=== PATIENT | female | born 1985 | race Asian ===

== ENCOUNTER 2023-07-20 19:21 | Emergency (ER) | payer BC ==
[~2023-07-20] VITALS: Ht 170.2 cm; Wt 68.0 kg
[2023-07-20 19:44] VITALS: BP_SYST 110; PULSE 90; RESP 18; TEMP 97.8; O2SAT 98
[2023-07-20] MEDS ORDERED: CLIN-22 PO (21:47)
[2023-07-20] MEDS ORDERED: IBUP-1969 PO (21:47)
[2023-07-20] MEDS: DIPHTH,PERTUSS(ACELL),TET VAC 0.5 ML VIAL (Tdap) I.M. ONE (22:01)
[2023-07-20] MEDS: KETAMINE HCL 500 MG/10 ML VIAL IVP ONE (22:02)
[2023-07-20] MEDS: CLINDAMYCIN 600 mg/50mL D5W 50 ML IV ONE (22:02)
[2023-07-20] MEDS: LIDOCAINE 1% 10 MG/ML, 20 ML MDV INJ ONE (22:04)
[2023-07-20] MEDS: ONDANSETRON HCL 4 MG/2 ML VIAL IVP ONE (23:08)
[2023-07-20 23:58] VITALS: BP_SYST 96; PULSE 89; RESP 18; TEMP 97.7; O2SAT 97
== END 2023-07-20 23:58 | disposition home or self-care (01) ==
LOC: SED 19:21
DX: N75.0 Cyst of Bartholin's gland (principal); N76.0 Acute vaginitis; Z88.0 Allergy status to penicillin; Z98.890 Other specified postprocedural states
CPT/HCPCS: 99285; 96365; 56420; 96375; 90715; 81025; 90471; 99152; J3490; J2405; J2001

== ENCOUNTER 2023-07-22 19:29 | Emergency (ER) | payer BC ==
[~2023-07-22] VITALS: Ht 170.2 cm; Wt 68.9 kg
[~2023-07-22 19:29] MED LIST: CLIN-22 PO; IBUP-1969 PO
[2023-07-22 19:50] VITALS: BP_SYST 114; PULSE 83; RESP 16; TEMP 98.3; O2SAT 98
== END 2023-07-22 20:22 | disposition home or self-care (01) ==
LOC: SED 19:29
DX: Z48.01 Encounter for change or removal of surgical wound dressing (principal); N75.0 Cyst of Bartholin's gland; Z88.0 Allergy status to penicillin; Z79.899 Other long term (current) drug therapy
CPT/HCPCS: 99281

== ENCOUNTER 2023-07-26 14:01 | Emergency (ER) | payer BC ==
[~2023-07-26] VITALS: Ht 170.2 cm; Wt 68.9 kg
[2023-07-26 14:37] VITALS: BP_SYST 120; PULSE 83; RESP 16; TEMP 98.2; O2SAT 100
[2023-07-26] MEDS: MORPHINE 4 MG INJ. 4 MG/ML VIAL IM ONE (15:21)
[2023-07-26] MEDS: LIDOCAINE 1% 10 MG/ML, 20 ML MDV INJ ONE (15:26)
[2023-07-26] MEDS: BACITRACIN 1 GM OINT TP ONE (15:27)
[2023-07-26 16:29] VITALS: BP_SYST 122; PULSE 87; RESP 16; TEMP 98.6; O2SAT 100
== END 2023-07-26 16:32 | disposition home or self-care (01) ==
LOC: SED 14:01
DX: N75.0 Cyst of Bartholin's gland (principal); Z48.01 Encounter for change or removal of surgical wound dressing; Z88.0 Allergy status to penicillin; Z79.899 Other long term (current) drug therapy
CPT/HCPCS: 99284; 56420; 96372; J2270; J2001